=== PATIENT | female | born 1940 | race Caucasian/White ===

== ENCOUNTER 2024-08-07 19:07 | Inpatient (IN) | payer OTHER, SELFPAY ==
[2024-08-07 14:27] VITALS: BP 169/89
[2024-08-07 14:50] LABS: % Basophils 0.6 % (0-2); % Eosinophils 2.5 % (0-6); % Immature Granulocytes 0.2 % (0-0.5); % Lymphocytes 23.7 % (20.5-51.1); % Monocytes 7.4 % (1.7-9.3); % Neutrophils 65.6 % (42.2-75.2); Absolute Eosinophils 0.2 10^3/uL (0-0.7); Absolute Lymphocytes 1.5 10^3/uL (1.2-3.4); Absolute Monocytes 0.5 10^3/uL (0.1-0.6); Absolute Neutrophils 4.2 10^3/uL (1.4-6.5); Hematocrit 41.8 % (37.0-47.0); Mean Corp Hgb Conc. 33.5 g/dL (33.0-37.0); Mean Corpuscular Hgb 27.6 pg (27.0-31.0); Mean Corpuscular Volume 82.4 fL (81.0-99.0); Mean Platelet Volume 8.5 fL (7.4-10.4); Nucleated Red Blood Cells % 0 %; Platelet Count 242 10^3/uL (130-400); Red Blood Cell Count 5.07 10^6/uL (4.20-5.40); Red Cell Dist. Width 13.4 % (11.5-14.5); White Blood Cell Count 6.5 10^3/uL (4.8-10.8)
[2024-08-07 15:03] LABS: ALT (SGPT) 12 U/L (0-35); AST (SGOT) 20 U/L (14-36); Albumin 4.3 g/dl (3.5-5.0); Alkaline Phosphatase 72 U/L (38-126); Blood Urea Nitrogen 13 mg/dl (7-17); Calcium 9.7 mg/dl (8.4-10.2); Carbon Dioxide 25 mmol/L (22-30); Chloride 107 mmol/L (98-107); Glucose 107 mg/dl (70-99); Potassium 3.9 mmol/L (3.5-5.1); Sodium 141 mmol/L (135-145); Total Bilirubin 0.7 mg/dl (0.2-1.3); eGFR > 60.00
--- NOTE | 2024-08-07 17:11 | ED.CVA ---
History of Present Illness
General
Chief Complaint: CVA/TIA Symptoms
Time Seen by Provider: 08/07/24 16:26
Onset of Stroke Symptoms
Onset of symptoms known: Yes
Date of onset of symptoms: 08/06/24
Time of onset of symptoms: 19:00
Time pt last seen normal is known: Yes
Date last time pt seen normal: 08/06/24
History of Present Illness
History of Present Illness:
84-year-old female with history of MS presenting to the emergency department for visual changes. Patient reports yesterday she was watching TV and noticed some double vision, particularly when looking towards the left. She also reported that she
felt dizzy and vertiginous. Symptoms went away after about an hour, however returned this afternoon. The dizziness and the vertiginous symptoms have since resolved, however still having double vision with looking to the left. She is unsure if
this could be from her MS. Denies any associated weakness or numbness to her extremities. Denies recent fever, chest pain, difficulty breathing. She is not currently on any medications for her MS. She is not currently on any steroids. She
denies additional acute medical
Past History
Past History
ED Past Medical History: HTN, NIDDM and Other (MS, esophagitis, diverticulosis, IBS, glaucoma,)
ED Past Surgical History: Appendectomy, Orthopedic and Tonsilectomy
Social History
Tobacco: Non-smoker
Alcohol: None
Drug: None
Employment: Retired
Phy Exam
Physical Exam
Physical Exam:
General: Well-appearing, no clinical signs of dehydration, nontoxic and in no acute distress
HEENT: protecting airway, pupils equal and reactive, extraocular movements intact with horizontal nystagmus bilaterally. Reproduction of double vision with gaze towards the left
Neck: appears supple
CV: Normal heart rate, regular rhythm
Resp: No accessory muscle use, no increased work of breathing, lungs clear to auscultation bilaterally
Abd: Soft and non-distended, no tenderness to palpation
Extremities: No deformities, no swelling
Neuro: alert, difficulty with jcajgg-ii-[id number] on left, partial hemianopsia on the left
: deferred
Rectal: deferred
Psych: Normal affect
Skin: Intact
Scores
NIH Stroke Score
Level of Consciousness: 0 - Alert
LOC Questions: 0-Answers both correctly
LOC Commands: 0-Performs both correctly
Best Horizontal Gaze: 0-Normal
Visual Morin: 1=Partial hemianopia
Facial Palsy: 0=Normal, symmetrical
Motor - Right Arm: 0=No drift 10 seconds
Motor - Left Arm: 0=No drift 10 seconds
Motor - Right Le-No drift 5 seconds
Motor - Left Le-No drift 5 seconds
Limb Ataxia: 1-Present in one limb
Sensation: 0-Normal
Best Language: 0-No aphasia
Dysarthria: 0-Normal
Extinction and Inattention: 0-No abnormality
Total Score:: 2
Course
Orders/Labs/Results
Orders:
Orders
08/07/24 14:32
CT Head W/o Iv Contrast Urgent
Comment:
Reason For Exam: dizzy, blurry vision
08/07/24 14:43
Complete Blood Count/With Diff Urgent
Comprehensive Metabolic Panel Urgent
08/07/24 17:09
CT Head & Neck Angio W/wo IV Urgent
Comment:
Reason For Exam: double vision
MRI Brain [MR Brain W/o & With Contrast] Urgent
Comment:
Reason For Exam: double vision
Recent pill cam endoscopy?: No
Abnormal Lab Results
08/07/24
14:43
Glucose 107 H mg/dl
(70-99)
08/07/24 14:43
08/07/24 14:43
Vital Signs
Initial and Last Documented VS:
Initial Vital Signs
Temp Pulse Resp BP Pulse Ox
98.2 F 78 18 169/89 96
08/07/24 14:27 08/07/24 14:27 08/07/24 14:27 08/07/24 14:27 08/07/24 14:27
Last Documented Vital Signs
Temp Pulse Resp BP Pulse Ox
98.2 F 78 18 169/89 96
08/07/24 14:27 08/07/24 14:27 08/07/24 14:27 08/07/24 14:27 08/07/24 14:27
MDM/Problems Addressed
MDM/Problems Addressed:
84-year-old female with history of MS presenting to the emergency department for double vision. Vital signs on arrival are significant for mild hypertension.
On exam patient is resting comfortably, no acute distress or discomfort. Patient does have partial hemianopsia and difficulty with syjfuh-hx-oueo testing on the left, otherwise no focal deficits. Differential considerations include CVA versus MS
flare. Patient does have some mild tenderness to the left temporal region, lower suspicion for temporal arteritis. Patient had CT imaging prior to my assessment, no acute intracranial abnormality. Patient is out of the window for any tPA. Did
discuss with neurology, recommending CT angio and MRI with plan for admission, and to start on low-dose aspirin.
*Critical Care Note
Total Time (30-74mins, 75-104mins- exclusive of procedures): Not Applicable
ED Attending Note
-
Portions of this chart may have been created with voice recognition software.� Occasional wrong word or��sound alike� substitutions may have occurred due to the inherent limitations of voice recognition software.
Discharge Plan
Departure
Prescriptions:
No Action
cyclobenzaprine 10 MG tablet
10 - 20 mg PO DAILYPRN PRN (Reason: muscle spasms)
diphenoxylate-atropine 1 TABLET tablet
1 tab PO BIDPRN PRN (Reason: diarrhea)
calcium carbonate [Oyster Shell Calcium 500] 500 MG tablet
500 mg PO DAILY
ascorbic acid (vitamin C) [Vitamin C] 500 MG tablet
500 mg PO DAILY
B-complex with vitamin C 1 CAPLET tablet
1 cap PO DAILY
cinnamon bark [Cinnamon] 500 MG capsule
500 mg PO DAILY
cholecalciferol (vitamin D3) 1,000 UNITS tablet
1,000 units PO DAILY
olopatadine [Pataday Once Daily Relief] 2.5 ML drops
1 drp BOTH EYES DAILYPRN PRN (Reason: flare ups)
melatonin 5 MG tablet
2.5 mg PO HSPRN PRN (Reason: sleep)
acetaminophen 325 MG tablet
650 mg PO Q4HPRN PRN (Reason: mild pain/BALTAZAR/temp> 100.4F) 0RF
ipratropium-albuterol 3 ML solution for nebulization
3 ml inhalation R Q4HPRN PRN (Reason: shortness or breath/wheezing) 0RF
levofloxacin 500 mg tablet
500 mg PO DAILY 3 Days Qty: 3 0RF
oxycodone-acetaminophen [Percocet] 5-325 mg tablet
1 tab PO Q4HPRN PRN (Reason: pain) Qty: 7 0RF
Referrals:
NONE,* [Family Provider] -
Interventions
Interventions:
*Risk Screen - Suicide Last Done: 08/07/24 14:27
*General Assessment Last Done: 08/07/24 14:27
*ED COVID-19 Vaccine History Last Done: 08/07/24 14:27
Discharge Date and Time
Print Language: ROMANSH
[2024-08-07] MEDS: LOW STRENGTH ASPIRIN 81 MG PO (17:29)
[2024-08-07 17:39] VITALS: BMI 22.7
--- NOTE | 2024-08-07 17:48 | HPS.HSE ---
Family Physician
-
Family Physician: Yrn Jackson
Chief Complaint
-
Double vision when looking straight, posterior headache
History of Present Illness
84-year-old female complaining of double vision when she looks straight yesterday 08/06/2024 while watching television. This lasted approximately 1 to 2 hours along with a posterior headache. She also reports tenderness to her left sikhism area.
She reports she has chronic diplopia when looking to the left which is caused a left neck torticollis. She reports the symptoms went away last night but then reoccurred this morning at 10 AM and persisted for over 2 hours. She still has a
posterior headache which is worse with sitting up. When sitting her blood pressure became extremely elevated 180/150. Then when standing up went to 160/100 associated with a stronger pressure in the posterior back of her head. She walked with a
walker in the room and felt a sense of leaning to the left however I did not appreciate this on my exam. She denies any associated weakness or numbness to her extremities, injury, fall, headache fever, chills, chest pain, palpitations, cough,
shortness of breath, abdominal pain, nausea, vomiting, diarrhea, urinary symptoms. She has past medical history of multiple sclerosis, History of meningioma right posterior foramen magnum,chronic left-sided diplopia, chronic left-sided neck
torticollis HTN, DM2, glaucoma, esophagitis, diverticulosis, IBS with chronic diarrhea,COPD/bronchiectasis,PVCs, Ankylosing spondylitis, Osteoporosis, Osteoarthritis
Full-thickness rotator cuff left shoulder status post left shoulder replacement,Zenker's diverticulum 2014, History shingles June 2014
Adrenal insufficiency 2014, Orthostatic hypotension
Medical History
Past Medical History
Past Medical History: Reports Other
Additional Past Medical History:
multiple sclerosis since age 18
History of meningioma right posterior foramen magnum
chronic left-sided diplopia
chronic left-sided neck torticollis due to chronic left-sided diplopia
HTN-stopped Norvasc years ago due to controlled pressure
DM2-stop meds years ago due to low A1c
glaucoma
esophagitis
diverticulosis
IBS with chronic diarrhea.
COPD/bronchiectasis
PVCs
Ankylosing spondylitis
Osteoporosis
Osteoarthritis
Full-thickness rotator cuff left shoulder status post left shoulder replacement
Zenker's diverticulum 2014
History shingles June 2014
Adrenal insufficiency Dx 2014
Orthostatic hypotension
Past Surgical History: Reports Other
Additional Past Surgical History:
Appendectomy
Tonsillectomy
-Multiple cervical epidurals 06/2012, 08/2012, additional epidurals April 2014, May, June, August, October 2014
Lumbar epidural�August 2012, December 2012 L3 epidural space, January/2013 third epidural lumbar, fourth epidural 2013
Right knee replacement June 2013 [facility]
Temporal artery biopsy
Left hip replacement 10/13/2020
Bilateral trigger finger release 08/27/2015
Social History
Tobacco: Former Smoker (20-year 1 pack a day quit 40 years ago)
Alcohol: Occasional
Drug: None
Personal: Single
Living: Alone (Two-story home but has stair glide)
Employment: Retired
Family History
Family History: Not pertinent
Allergies / Home Medications
Allergies reflects when Allergies were last updated in [facility].
Home Medications with original date entered in [facility]
Allergy/Medication List:
Allergies
Allergy/AdvReac Type Severity Reaction Status Date / Time
acetaminophen [From Ultracet] Allergy Unknown Verified 08/07/24 14:31
amiloride Allergy Unknown Verified 08/07/24 14:31
amlodipine besylate Allergy Unknown Verified 08/07/24 14:31
[From Norvasc]
azithromycin [From Zithromax] Allergy Unknown Verified 08/07/24 14:31
bacitracin [From Cortisporin] Allergy EYE Verified 08/07/24 14:31
DROPS-UNKNOWN
cefaclor [From Ceclor] Allergy Unknown Verified 08/07/24 14:31
cefixime [From Suprax] Allergy Unknown Verified 08/07/24 14:31
cefuroxime axetil Allergy Unknown Verified 08/07/24 14:31
[From Ceftin]
ciprofloxacin [From Cipro] Allergy Unknown Verified 08/07/24 14:31
ciprofloxacin HCl Allergy Unknown Verified 08/07/24 14:31
[From Cipro]
clarithromycin [From Biaxin] Allergy Unknown Verified 08/07/24 14:31
cyproheptadine HCl Allergy Unknown Verified 08/07/24 14:31
[From Periactin]
diclofenac [From Arthrotec] Allergy Unknown Verified 08/07/24 14:31
diltiazem HCl [From Cardizem] Allergy Unknown Verified 08/07/24 14:31
etidronate disodium Allergy Unknown Verified 08/07/24 14:31
[From Didronel]
fluoxetine HCl [From Prozac] Allergy Unknown Verified 08/07/24 14:31
flurbiprofen [From Ansaid] Allergy Unknown Verified 08/07/24 14:31
hydrocortisone Allergy EYE Verified 08/07/24 14:31
[From Cortisporin] DROPS-UNKNOWN
hydromorphone HCl Allergy Unknown Verified 08/07/24 14:31
[From Dilaudid]
lansoprazole [From Prevacid] Allergy Unknown Verified 08/07/24 14:31
losartan potassium Allergy Unknown Verified 08/07/24 14:31
[From Cozaar]
metoprolol succinate Allergy Unknown Verified 08/07/24 14:31
[From Toprol XL]
misoprostol [From Arthrotec] Allergy Unknown Verified 08/07/24 14:31
neomycin [From Cortisporin] Allergy EYE Verified 08/07/24 14:31
DROPS-UNKNOWN
polymyxin B Allergy EYE Verified 08/07/24 14:31
[From Cortisporin] DROPS-UNKNOWN
pravastatin Allergy Unknown Verified 08/07/24 14:31
quinapril HCl [From Accupril] Allergy Unknown Verified 08/07/24 14:31
sertraline HCl [From Zoloft] Allergy Unknown Verified 08/07/24 14:31
shellfish derived Allergy Unknown Verified 08/07/24 14:31
simvastatin Allergy Unknown Verified 08/07/24 14:31
Sulfa (Sulfonamide Allergy ALL SULFA Verified 08/07/24 14:31
Antibiotics) DRUGS
topiramate [From Topamax] Allergy Unknown Verified 08/07/24 14:31
tramadol Allergy Unknown Verified 08/07/24 14:31
tramadol HCl [From Ultracet] Allergy Unknown Verified 08/07/24 14:31
valdecoxib [From Bextra] Allergy Unknown Verified 08/07/24 14:31
verapamil [From Covera-HS] Allergy Unknown Verified 08/07/24 14:31
Home Medications
cholecalciferol (vitamin D3) 25 mcg (1,000 unit) tablet 1,000 units PO BID Supplement 09/20/21
olopatadine 0.2 % eye drops (Pataday Once Daily Relief) 1 drp BOTH EYES DAILYPRN PRN flare ups 09/20/21
ascorbic acid (vitamin C) 250 mg chewable tablet (Vitamin C) 250 mg PO DAILY 08/07/24
calcium 500 mg (as carbonate)-vit D3 10 mcg (400 unit) chewable tablet (Calcium 500 + D) 1 tab PO DAILY 08/07/24
coenzyme Q10 100 mg capsule (CoQ-10) 100 mg PO BID 08/07/24
diphenoxylate-atropine 2.5 mg-0.025 mg tablet 1 tab PO QID 08/07/24
elderberry fruit 350 mg capsule 350 mg PO DAILY 08/07/24
magnesium oxide 400 mg PO DAILY 08/07/24
omega-3 fatty acids-fish oil 684 mg-1,200 mg capsule,delayed release 1 cap PO DAILY 08/07/24
oxycodone-acetaminophen 5 mg-325 mg tablet (Percocet) 1 tab PO Q4HPRN PRN severe pain 08/07/24
vitamin B complex 1 tab PO DAILY 08/07/24
zinc sulfate 50 mg zinc (220 mg) tablet 50 mg PO DAILY 08/07/24
Review of Systems
-
History Source: Patient and Family (Daughter at bedside)
A 12 point ROS was completed and negative except as noted: Yes
Constitutional: Denies Fever, Fatigue or Chills
EENT: Reports Other (Chronic diplopia looking to the left, new diplopia looking forward lasted 1 to 2 hours yesterday and today, torticollis left-sided neck, tenderness left temporal area); Denies Sore Throat
Respiratory: Denies Cough or Trouble Breathing
Cardiac: Denies Chest Pain, Diaphoresis, Palpitations or Syncope
Abdomen/GI: Denies Abdominal Pain, Nausea, Vomiting, Diarrhea or Constipated
: Denies Dysuria, Frequency, Flank Pain, Incontinence, Difficulty Voiding, Urgency or Dark Urine
Musculoskeletal: Denies Joint Pain or Edema
Skin: Denies Itching or Rash
Neurological: Reports Headache (Posterior headache) and Other (Feels she is leaning to the left when walking however I did not observe this on my exam); Denies Dizzy, Weakness or Numbness
Endocrine: Reports No Symptoms
Hematologic/Lymphatic: Reports No Symptoms
Psych: Reports Calm
Physical Exam
Vital Signs
Vital Signs
Temp Pulse Resp BP Pulse Ox
98.2 F 78 18 169/89 97
08/07/24 14:27 08/07/24 14:27 08/07/24 14:27 08/07/24 14:27 08/07/24 17:45
Physical Exam
General: Comfortable, Conversant and Pain (Posterior neck); No Fever
HEENT: NormoCephalic, Anicteric, Moist mucous membranes, PERRLA, Grawn Conjunctivae, No Ptosis and Other (Reported diplopia when looking to left, brief diplopia when sitting up in bed with blood pressure 180/150, tenderness to left side of neck
secondary to torticollis related to chronic left-sided diplopia)
Respiratory: Clear; No Wheezes, Rales or Rhonchi
Cardiac: S1/S2 and Regular Rhythm; No Murmur, Rub or Gallop
Breast: Deferred by me
GI: Soft, Non Tender, Non Distended, Normal Bowel Sounds and No Hepatosplenomegaly
Rectal: Deferred by Provider
Genito-urinary: Deferred by me
Musculoskeletal: No Clubbing, No Cyanosis and No Edema
Skin: Warm and Dry; No Rash
Neuro: AO x 3, Nonfocal/grossly intact, Cranial Nerves Intact, No Sensory Deficits and Other (Was able to walk with a walker in room and turned around to left and right she reports feeling since leaning to left however I do not appreciate that on
exam); No Slurred Speech, Facial Droop or Tremors
Psych: Anxious
Laboratory Results
-
08/07/24 14:43
08/07/24 14:43
Laboratory Results
Total Bilirubin 0.7 mg/dl (0.2-1.3) 08/07/24 14:43
AST 20 U/L (14-36) 08/07/24 14:43
ALT 12 U/L (0-35) 08/07/24 14:43
Alkaline Phosphatase 72 U/L (38-126) 08/07/24 14:43
Data Reviewed
-
Lab Data: Labs Reviewed by me
Impression/Plan
-
Impression/plan:
Observation telemetry
#Acute diplopia with left-sided gait leaning concern for MS flare versus CVA
#Chronic left-sided diplopia causing left-sided neck torticollis-advised patient to follow-up with PT outpatient for torticollis physical therapy
-Check CT angio
-MRI brain
-Consult neurology
-Check lipid profile, A1c
Patient given aspirin
-Consult PT/OT/case management
CT head: No acute intracranial abnormalities. Findings again seen with diffuse cortical atrophy with nonspecific white matter changes
#HTN Urgency likely causing posterior headache
Lying BP 169/89 HR 80
Sitting 180/150 HR 80
Standing 160/100 HR 88
-IV hydralazine 10 mg now
-IV hydralazine 10 mg every 6 hours as needed SBP> 165
#History of meningioma right posterior foramen magnum
-Patient reports had MRI years ago at [place] on [address] had slight increase of the meningioma
Patient follows with [facility] neurosurgery and Keena Damon associated with [facility]
-Obtain MRI records from [place]
#Multiple sclerosis since age 18
#Chronic dysphagia�states he eats regular food just cuts into small pieces tolerates thin liquids
PMR
-Last use of prednisone was several months ago
Fibromyalgia on chronic oral opiates
DDD/scoliosis/herniated disks/multiple cervical and lumbar epidurals
#DM2
-Patient reports stopped meds years ago after 90 pound weight loss
Will check HgbA1c Accu-Cheks with SSI
#GlaucomA
-Patient received no current treatments
#Esophagitis
-No current meds
#Diverticulosis hx-stable
#IBS with history of chronic diarrhea
-Continue Lomotil 1 tab 4 times daily
Other PMH:
COPD/bronchiectasis
PVCs
Ankylosing spondylitis
Osteoporosis
Osteoarthritis
Full-thickness rotator cuff left shoulder status post left shoulder replacement
Zenker's diverticulum 2014
History shingles June 2014
Adrenal insufficiency Dx 2014
Orthostatic hypotension
DVT prophylaxis
SCDs
DNR per patient with daughter at bedside
--- NOTE | 2024-08-07 19:17 | W.PN.UPDATE ---
Update Note
Progress Note Update
This is an addendum to the H&P written by Daxa Bhatia on 08/07/2024.� Patient seen and examined independently with ADMITTED ATTORNEYS.
84-year-old female past medical history of multiple sclerosis, hypertension, diabetes, COPD, GERD, esophagitis, fibromyalgia, IBS, degenerative disc disease, presenting for double vision when looking towards the left, dizziness and vertigo
associated with headache.� Symptoms improved and returned.
CT head shows no acute abnormality.
Presentation concerning multiple sclerosis flare versus rule out CVA.
NIH of 2.� Neurology recommends CTA head and neck and MRI brain.� Hold off on steroids.
[2024-08-07 19:26] VITALS: BP 179/99
[2024-08-07] MEDS: TYLENOL 650 MG PO ×2 (19:27→23:03)
[2024-08-07] MEDS: APRESOLINE 10 MG IV ×2 (19:29→22:15)
[2024-08-07 19:44] LABS: Erythrocyte Sed Rate 2 mm/hour (0-20)
[2024-08-07 19:47] LABS: C-Reactive Protein < 5.00 mg/L (0.0-10.00)
[2024-08-07 21:10] VITALS: BP 169/87
[2024-08-07 21:50] VITALS: BP 170/90; BMI 21.7
[2024-08-07] MEDS: LOMOTIL 1 TABLET PO (22:15)
--- NOTE | 2024-08-07 23:11 | PTCARENOTE ---
Patient stated she felt like she was having uncontrolled movements in her arms around 2200. Jerking hand movements noted, but quickly resolved. Per patient she had a similar episode after she had her imaging done. Nurse practitioner made aware, no
new orders.
[2024-08-07] MEDS: PERCOCET 5/325 1 TABLET PO (23:46)
[2024-08-07 23:50] VITALS: BP 126/80
[2024-08-08] VITALS (8 sets, daily range): BP systolic 117–150; BP diastolic 64–79; PULSE 73–77; O2SAT 99; BMI 21.7
[2024-08-08] MEDS: TYLENOL 650 MG PO (03:35)
--- NOTE | 2024-08-08 07:19 | CON.NEURO ---
Consultation
Order
Date of Consultation: 08/08/24
Requesting Provider: Daxa Bhatia CRNP
Reason for Consult: Diplopia, posterior headache
Neurology Consultation Note.
HPI: This is an 84-year-old RH woman who presented to [facility] on 08/07/2024 with transient language dysfunction.
According to the patient two days prior to admission, while watching television, the patient experienced an inability to comprehend letters on the screen. She was unable to read despite being able to see the letters. It is unknown if the patient
could write during that time . Upon standing, Ms. Baer noted significant balance issues and exacerbation of pre-existing left gaze diplopia. Her visual symptoms gradually improved improved. She contacted her PCP who was unavailable at that time.
The following day, a similar episode occurred, prompting the patient to seek hospital care. Ms. Baer reports no difficulties with expressive language (and was able to communicate on the phone with no changes). She denied having headaches,
fever. No history of seizures.
ER VS: 169/89-179/99, 78, afebrile.
EKG: Pending
PDMP:Oxycodone-Acetaminophen 5-325 20 tablets filled in on 07/26/2024, 06/06/2024
Labs: Glucose�107, normal CBC, LFTs
Brain MRI with and without rafa (08/07/2024)�right posterior fossa meningioma measuring up to 1.2 cm, with slight mass effect on the right posterolateral aspect of the medulla, slightly progressed, stable moderate to severe hyperintensity within the
periventricular and deep subcortical white matter and fanny, no evidence of acute infarcts.
CTA head/neck�no evidence of hemodynamically significant stenosis
PMH:RRMS, HTN, DLP, GERD, COPD, OA, RAFA, IBS, fibromyalgia, Ankylosing spondylitis, osteoporosis, vitamin D deficiency, chronic pain syndrome
PSH: Lumbar laminectomies, appendectomy, bilateral median decompression, left shoulder arthroplasty Zenker's diverticulum repair
SH: Lives alone, ambulates with a walker, does not drive, non-smoker, retired insurance company director funeral
FH: Not contributory
All: Sulfas, Acetaminophen, amiloride, amlodipine, azithromycin, cefaclor, cefepime, cefuroxime, Cipro, erythromycin, diclofenac, diltiazem, Dilaudid, lansoprazole, hydrocortisone, losartan, metoprolol, misoprostol, neomycin, pravastatin,
sertraline, iodine, simvastatin, sulfas, Topamax, valdecoxib, tramadol, verapamil polymyxin
ROS: Constitutional: Negative. Negative for chills, fever and unexpected weight change.
HENT: Positive for chronic diplopia
Eyes: Negative. Negative for photophobia, pain and visual disturbance.
Respiratory: Negative for cough, choking and shortness of breath.
Cardiovascular: Negative for chest pain, palpitations and leg swelling.
Gastrointestinal: Positive for chronic diarrhea, bowel incontinence
Endocrine: Negative. Negative for cold intolerance.
Genitourinary: Negative for dysuria, flank pain and urgency.
Musculoskeletal: Positive for back stiffness
Skin: Negative for rash.
Allergic/Immunologic: Negative. Negative for immunocompromised state.
Neurological: Positive for chronic imbalance, chronic right foot numbness, regarding the legs
General: Well developed. In no acute distress.
Cardio: Regular rate and rhythm without murmur. Extremities are without cyanosis or edema.
Neuro:
Mental Status: Alert, oriented to person, place, and date. Normal attention and recall. Good fund of knowledge. Follows complex requests across the midline. Comprehension, naming, and repetition intact. Immediate and delayed recall 3/3.
Cranial Nerves: Pupils are equally round, surgical. EOMs full. Visual ayers full to confrontation. No ptosis. No nystagmus. V1-V3 intact to light touch and pinprick bilaterally, symmetric. Face symmetric. Normal hearing AU. The palate
elevated well. SCMs and traps 5/5. Tongue midline. No dysarthria.
Motor: Normal bulk and tone. No pronator or arm drift. Strength 5/5 throughout. No clonus.
Reflexes: 2+ throughout the upper extremities and knees. Plantar responses flexor bilaterally.
Sensory: Reduced vibration at the right toe and ankle
Coordination: No dysmetria or tremor.
Gait: deferred
Assessment and Plan:
I. 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 Differential diagnosis includes vascular versus epileptic.
II. Right posterior fossa meningioma with mass effect on the right posterolateral aspect of the medulla
III. RRMS
IV. HTN
-Continue Telemetry monitoring
-Fall precautions
-Please obtain routine EEG
-Start Plavix 75 mg once a day. Patient is allergic to sulfas
-Neurosurgery consult (can be done as outpatient)
-Outpatient neuropsychological evaluation
-PT
-DVT prophylaxis.
I personally reviewed all radiology and labs along with past medical records pertinent to current medical problems. Total time spent in patient care is 60 minutes.
Thank you for allowing us to participate in the care of this patient. We will continue to follow. Please do not hesitate to contact us with any questions or concerns.
Subjective/Objective
Subjective Data
Date of Service: August 08, 2024
Objective Data
Vital Signs
Temp Pulse Resp BP Pulse Ox
36.7 C 85 18 117/70 99
08/08/24 03:13 08/08/24 03:13 08/08/24 03:13 08/08/24 03:13 08/08/24 03:13
Sodium 141 mmol/L (135-145) 08/07/24 14:43
Potassium 3.9 mmol/L (3.5-5.1) 08/07/24 14:43
BUN 13 mg/dl (7-17) 08/07/24 14:43
Glucose 107 mg/dl (70-99) H 08/07/24 14:43
Calcium 9.7 mg/dl (8.4-10.2) 08/07/24 14:43
Patient Allergies
acetaminophen [From Ultracet] Allergy (Verified 08/07/24 14:31)
Unknown
amiloride Allergy (Verified 08/07/24 14:31)
Unknown
amlodipine besylate [From Norvasc] Allergy (Verified 08/07/24 14:31)
Unknown
azithromycin [From Zithromax] Allergy (Verified 08/07/24 14:31)
Unknown
bacitracin [From Cortisporin] Allergy (Verified 08/07/24 14:31)
EYE DROPS-UNKNOWN
cefaclor [From Ceclor] Allergy (Verified 08/07/24 14:31)
Unknown
cefixime [From Suprax] Allergy (Verified 08/07/24 14:31)
Unknown
cefuroxime axetil [From Ceftin] Allergy (Verified 08/07/24 14:31)
Unknown
ciprofloxacin [From Cipro] Allergy (Verified 08/07/24 14:31)
Unknown
ciprofloxacin HCl [From Cipro] Allergy (Verified 08/07/24 14:31)
Unknown
clarithromycin [From Biaxin] Allergy (Verified 08/07/24 14:31)
Unknown
cyproheptadine HCl [From Periactin] Allergy (Verified 08/07/24 14:31)
Unknown
diclofenac [From Arthrotec] Allergy (Verified 08/07/24 14:31)
Unknown
diltiazem HCl [From Cardizem] Allergy (Verified 08/07/24 14:31)
Unknown
etidronate disodium [From Didronel] Allergy (Verified 08/07/24 14:31)
Unknown
fluoxetine HCl [From Prozac] Allergy (Verified 08/07/24 14:31)
Unknown
flurbiprofen [From Ansaid] Allergy (Verified 08/07/24 14:31)
Unknown
hydrocortisone [From Cortisporin] Allergy (Verified 08/07/24 14:31)
EYE DROPS-UNKNOWN
hydromorphone HCl [From Dilaudid] Allergy (Verified 08/07/24 14:31)
Unknown
lansoprazole [From Prevacid] Allergy (Verified 08/07/24 14:31)
Unknown
losartan potassium [From Cozaar] Allergy (Verified 08/07/24 14:31)
Unknown
metoprolol succinate [From Toprol XL] Allergy (Verified 08/07/24 14:31)
Unknown
misoprostol [From Arthrotec] Allergy (Verified 08/07/24 14:31)
Unknown
neomycin [From Cortisporin] Allergy (Verified 08/07/24 14:31)
EYE DROPS-UNKNOWN
polymyxin B [From Cortisporin] Allergy (Verified 08/07/24 14:31)
EYE DROPS-UNKNOWN
pravastatin Allergy (Verified 08/07/24 14:31)
Unknown
quinapril HCl [From Accupril] Allergy (Verified 08/07/24 14:31)
Unknown
sertraline HCl [From Zoloft] Allergy (Verified 08/07/24 14:31)
Unknown
shellfish derived Allergy (Verified 08/07/24 14:31)
Unknown
simvastatin Allergy (Verified 08/07/24 14:31)
Unknown
Sulfa (Sulfonamide Antibiotics) Allergy (Verified 08/07/24 14:31)
ALL SULFA DRUGS
topiramate [From Topamax] Allergy (Verified 08/07/24 14:31)
Unknown
tramadol Allergy (Verified 08/07/24 14:31)
Unknown
tramadol HCl [From Ultracet] Allergy (Verified 08/07/24 14:31)
Unknown
valdecoxib [From Bextra] Allergy (Verified 08/07/24 14:31)
Unknown
verapamil [From Covera-HS] Allergy (Verified 08/07/24 14:31)
Unknown
Medications
-
Active Medications
Generic Name Dose Route Start Last Admin
Trade Name Freq PRN Reason Stop Dose Admin
Acetaminophen 650 mg 08/07/24 21:18 08/08/24 03:35
Acetaminophen 325 Mg Tablet PO 09/04/24 21:17 650 mg
Q4HPRN PRN Administration
mild pain/BALTAZAR/temp> 100.4F
Ascorbic Acid 250 mg 08/08/24 08:00
Ascorbic Acid 250 Mg Tablet PO 09/05/24 07:59
DAILY AARON
Calcium/Vitamin D 500 mg 08/08/24 08:00
Calcium Carbonate 500 Mg/Vitamin D 5 Mcg (200 Units) Tablet PO 09/05/24 07:59
DAILY AARON
Dextrose 12.5 grams 08/07/24 21:18
Dextrose 50% (0.5 Grams/Ml) 50 Ml Syringe IV 09/04/24 21:17
[id number] PRN
hypoglycemia
Protocol
Diphenoxylate HCl/Atropine 1 tablet 08/07/24 22:00 08/07/24 22:15
Diphenoxylate/Atropine Tablet PO 09/04/24 21:59 1 tablet
QID AARON Administration
Glucagon 1 mg 08/07/24 21:18
Glucagon 1 Mg Vial IM 09/04/24 21:17
PRN PRN
hypoglycemia
Protocol
Hydralazine HCl 10 mg 08/07/24 18:27 08/07/24 22:15
Hydralazine 20 Mg/Ml Vial IV 09/04/24 18:26 10 mg
Q6HPRN PRN Administration
sbp>165 lynne>110
Insulin Aspart 0 units 08/08/24 07:30
Insulin Aspart Low Resistance 300 Units/3 Ml Pen.Injctr SC 09/05/24 07:29
AC AARON
Protocol
Magnesium 84 mg 08/08/24 08:00
Magnesium Lactate 84 Mg Tablet PO 09/05/24 07:59
DAILY AARON
Olopatadine [Pataday 0 drop 08/07/24 21:18
Once Daily Relief] BOTH EYES 09/04/24 21:17
One Drop Both Eyes DAILYPRN PRN
Dailyprn flare ups
Oxycodone/Acetaminophen 1 tablet 08/07/24 21:18 08/07/24 23:46
Oxycodone 5 Mg/Apap 325 Mg (Percocet) PO 08/21/24 21:17 1 tablet
Q4HPRN PRN Administration
severe pain
Sodium Chloride 0 flush 08/07/24 20:00
Sodium Chloride 0.9% (Flush) Syringe IV 09/04/24 19:59
PER PROTOCOL AARON
Vitamin B Complex/Vitamin C 1 caplet 08/08/24 08:00
Vitamin B Complex With Vitamin C Caplet PO 09/05/24 07:59
DAILY AARON
Zinc 50 mg 08/08/24 08:00
Zinc 50 Mg (Zinc Sulfate 220 Mg) Capsule PO 09/05/24 07:59
DAILY AARON
Home Medications
�Medication �Instructions �Recorded
cholecalciferol (vitamin D3) 25 1,000 units PO BID Supplement 09/20/21
mcg (1,000 unit) tablet
olopatadine 0.2 % eye drops 1 drp BOTH EYES DAILYPRN PRN flare 09/20/21
(Pataday Once Daily Relief) ups
ascorbic acid (vitamin C) 250 mg 250 mg PO DAILY Supplement 08/07/24
chewable tablet (Vitamin C)
calcium 500 mg (as carbonate)-vit 1 tab PO DAILY Supplement 08/07/24
D3 10 mcg (400 unit) chewable
tablet (Calcium 500 + D)
coenzyme Q10 100 mg capsule 100 mg PO BID High Cholesterol 08/07/24
(CoQ-10)
diphenoxylate-atropine 2.5 1 tab PO QID 08/07/24
mg-0.025 mg tablet
elderberry fruit 350 mg capsule 350 mg PO DAILY Supplement 08/07/24
magnesium oxide 400 mg PO DAILY 08/07/24
omega-3 fatty acids-fish oil 684 1 cap PO DAILY 08/07/24
mg-1,200 mg capsule,delayed release
oxycodone-acetaminophen 5 mg-325 1 tab PO Q4HPRN PRN severe pain 08/07/24
mg tablet (Percocet)
vitamin B complex 1 tab PO DAILY 08/07/24
zinc sulfate 50 mg zinc (220 mg) 50 mg PO DAILY 08/07/24
tablet
[2024-08-08 07:55] LABS: % Basophils 0.4 % (0-2); % Eosinophils 2.4 % (0-6); % Immature Granulocytes 0.1 % (0-0.5); % Lymphocytes 17.5 % (20.5-51.1); % Monocytes 8.4 % (1.7-9.3); % Neutrophils 71.2 % (42.2-75.2); Absolute Eosinophils 0.2 10^3/uL (0-0.7); Absolute Lymphocytes 1.2 10^3/uL (1.2-3.4); Absolute Monocytes 0.6 10^3/uL (0.1-0.6); Absolute Neutrophils 4.8 10^3/uL (1.4-6.5); Hematocrit 40.4 % (37.0-47.0); Hemoglobin 13.8 g/dL (12.0-16.0); Mean Corp Hgb Conc. 34.2 g/dL (33.0-37.0); Mean Corpuscular Hgb 27.9 pg (27.0-31.0); Mean Corpuscular Volume 81.6 fL (81.0-99.0); Nucleated Red Blood Cells % 0 %; Platelet Count 253 10^3/uL (130-400); Red Blood Cell Count 4.95 10^6/uL (4.20-5.40); Red Cell Dist. Width 13.6 % (11.5-14.5); White Blood Cell Count 6.7 10^3/uL (4.8-10.8)
[2024-08-08 08:12] LABS: Glucose - Point of Care 119 mg/dl (70-99)
[2024-08-08] MEDS: NOVOLOG FLEXPEN-LOW RESISTANCE SC ×2 (08:17→11:12)
[2024-08-08] MEDS: OSCAL 500 + D 500 MG PO (08:20)
[2024-08-08] MEDS: MAG-TAB SR 84 MG PO (08:20)
[2024-08-08] MEDS: B COMPLEX w/VITAMIN C 1 CAPLET PO (08:25)
[2024-08-08] MEDS: LOMOTIL 1 TABLET PO ×4 (08:25→20:27)
[2024-08-08] MEDS: ZINC 50 MG PO (08:25)
--- NOTE | 2024-08-08 09:05 | PTOTSP ---
pt currently requires supervision to complete simple ADLs, functional transfers, ambulation. pt reports vision is near baseline, though continues with diplopia of left visual gaze. no acute OT needs identified at this time, will sign off.
[2024-08-08 09:09] LABS: ALT (SGPT) 11 U/L (0-35); AST (SGOT) 21 U/L (14-36); Albumin 3.8 g/dl (3.5-5.0); Alkaline Phosphatase 66 U/L (38-126); Blood Urea Nitrogen 12 mg/dl (7-17); Calcium 9.6 mg/dl (8.4-10.2); Carbon Dioxide 26 mmol/L (22-30); Chloride 108 mmol/L (98-107); Estimated Creatinine Clearance 52 ml/min; Glucose 116 mg/dl (70-99); HDL Cholesterol 37 mg/dl; LDL Cholesterol, Calculated 110 mg/dl; Potassium 4.1 mmol/L (3.5-5.1); Sodium 141 mmol/L (135-145); Total Bilirubin 0.9 mg/dl (0.2-1.3); Total Cholesterol 170 mg/dl (50-199); Total Protein 6.2 g/dl (6.3-8.2); Triglyceride 115 mg/dl (10-149); Very Low Density Lipoprotein 23 mg/dl (0-30); eGFR > 60.00
[2024-08-08 10:19] LABS: Glycohemoglobin (HgbA1c) 5.6 % (4.0-5.6)
[2024-08-08] MEDS: VITAMIN C 250 MG PO (11:04)
[2024-08-08] MEDS: PLAVIX 75 MG PO (11:06)
--- NOTE | 2024-08-08 11:07 | EEGC.RPT ---
Continuous EEG Report
Report
TECHNICAL REMARKS: This is a technically satisfactory eighteen channel record employing 21 disc electrodes applied according to a measured international 10-20 electrode placement system. There were no significant technical difficulties. The study
was done on a [employer] System.
CLINICAL HISTORY: This is an 84-year-old woman with recurrent alexia. This study was requested to look for epileptiform abnormalities.
MEDICATION: no AED
STUDY DURATION: 27 min, 58 secs
REPORT: At the onset of the EEG, the patient is awake. The background activity consists of 9.5-10 Hz, persistent, posteriorly dominant, moderate amplitude, symmetric and rhythmic activity that is reactive to eye-opening. Anteriorly, it consists of
a mixture of low voltage indeterminate activity and 20-25 Hz, persistent, low amplitude, symmetric and rhythmic activity. Stepwise intermittent photic stimulation (1-31 Hz) does not induce any abnormalities. Hyperventilation was not performed.
Drowsiness is characterized by low amplitude mixed frequency activity, decreased eye blinking, and muscle artifact. N2 sleep was reached
IMPRESSION: This is a normal awake and asleep EEG. There is no evidence of focal slowing or epileptiform activity. A normal EEG does not rule out epilepsy. If the clinical picture warrants, a sleep-deprived awake and sleep record may be helpful.
[2024-08-08 11:10] LABS: Glucose - Point of Care 109 mg/dl (70-99)
--- NOTE | 2024-08-08 11:20 | W.PN.HOSP.TC ---
Addendum entered and electronically signed by Susan Fung MD 08/08/24 14:06:
I saw and evaluated the patient independently. I reviewed the resident�s note and agree with findings and plan as documented by Dr. Vides.
GENERAL: well developed, well nourished, female in no apparent distress
HEENT: NC/AT
HEART: regular rate and rhythm, +S1, +S2--periods of rapid afib on tele (HR increased to 142)
LUNGS : clear to auscultation bilaterally
ABDOM: soft, nontender, nondistended, + bowel sounds
EXT: no cyanosis, clubbing, or edema
NEUROLOGIC: grossly intact
Acute diplopia (Chronic left-sided diplopia along with left-sided neck torticollis) with left-sided gait--strongly suspected TIA--apprec neuro--CT/MRI all negative for acute findings--EEG negative--cont plavix--for d/c tomorrow--PT/OT
Hypertensive urgency likely causing headaches--IV hydralazine as needed--Continue monitoring blood pressure
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
Multiple sclerosis--Symptoms not thought to be due to recent MS flare--Continue prior management
Type 2 diabetes--HbA1c pending--Insulin sliding scale as needed
IBS with history of chronic diarrhea--Continue Lomotil 1 tablet 4 times daily
DVT proph--SCDs
code status--Full code
Original Note:
Today's Communication/Plan
-
Continue monitoring for any worsening symptoms, monitor blood pressure
Assessment / Plan
Assessment / Plan
Assessment:
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
diverticulitis came to the [facility] ED on 08/07/2024 due to increased headache, worsening diplopia and recent complaints of increased blood pressure. Patient underwent CT CT scans and MRI of the head which did not show any acute
findings. Patient currently being followed by neuro, input appreciated. Patient was admitted for further management.
CT Head W/o Iv Contrast (08/07/2024):
No acute intracranial abnormalities.
Findings again seen compatible with diffuse cortical atrophy with nonspecific white matter changes as described above.
MR Brain W/o & With Contrast (08/07/2024):
No acute intracranial abnormality noted. Advanced chronic senescent changes.
CT Head & Neck Angio W/wo IV (08/07/2024):
No significant vascular occlusion, aneurysm or dissection.
EEG (08/07/2024)
This is a normal awake and asleep EEG. There is no evidence of focal slowing or epileptiform activity. A normal EEG does not rule out epilepsy. If the clinical picture warrants, a sleep-deprived awake and sleep record may be helpful.
Plan:
# Acute diplopia with left-sided gait
# Chronic left-sided diplopia along with left-sided neck torticollis hypertension
-CT, MRI as above, no acute findings shown
-Neuro consulted, input appreciated
-Patient to continue Plavix 75 mg once a day
-EEG as above, no acute findings seen
-Continue fall precautions
-PT/OT
-Mild elevation in LDL (110)
# Hypertensive urgency causing headaches
-IV hydralazine as needed
-Continue monitoring blood pressure
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
-Patient to follow-up with neurosurgery outpatient
# Multiple sclerosis
-Symptoms not thought to be due to recent MS flare
-Continue prior management
# Type 2 diabetes
-HbA1c pending
-Insulin sliding scale as needed
# IBS with history of chronic diarrhea
-Continue Lomotil 1 tablet 4 times daily
DVT prophylaxis: SCDs
Full code (as per conversation with patient)
Anticipated Discharge: Within 24 hours
Subjective/Interval History
-
Date of Service: August 08, 2024
Patient do not have any acute concerns when seen this morning. She was just very concerned about the results of the MRI. Let patient know about no acute findings seen, was very relieved afterwards. Discussed with her regarding her CODE STATUS and
she wanted to remain full code.
Objective Data
-
Labs:
Laboratory Results
08/08/24 08/08/24
06:43 06:44
WBC 6.7
Hgb 13.8
Hct 40.4
Plt Count 253
Sodium 141
Potassium 4.1
Chloride 108 H
Carbon Dioxide 26
BUN 12
Creatinine 0.7
Glucose 116 H
Calcium 9.6
Total Bilirubin 0.9
AST 21
ALT 11
Alkaline Phosphatase 66
Vital Signs:
Vital Signs
Temp Pulse Resp BP Pulse Ox
97.4 F 79 16 144/79 96
08/08/24 11:00 08/08/24 11:00 08/08/24 11:00 08/08/24 11:00 08/08/24 11:00
I&O
08/07/24 08/08/24 08/09/24
06:59 06:59 06:59
Intake Total 120 / 120
Balance 120 / 120
Review of Systems
-
History Source: Patient
Constitutional: Denies Fever, Chills or Weakness (Not increased from before)
Respiratory: Denies Cough or Trouble Breathing
Cardiac: Denies Chest Pain or Syncope
Abdomen/GI: Denies Abdominal Pain, Nausea or Vomiting
Musculoskeletal: Reports No Symptoms
Neuro: Reports Headache (Much reduced from before)
Physical Exam
-
General: Well Developed, No Apparent Distress, Comfortable and Conversant
HEENT: Normocephalic, Atraumatic and Other (Double vision on the left side, normal vision while looking straight head)
Respiratory: Clear to Auscultation
Cardiac: Regular Rhythm and S1/S2
GI: Soft, Nontender and Nondistended
Musculoskeletal: No Clubbing, No Cyanosis and No Edema
Skin: Warm and Dry
Neuro: Awake, Alert and Oriented; Negative No Motor Deficits or No Sensory Deficits
Psych: Calm
Data Reviewed
-
CT Scan: Report Reviewed by me, Discussed with Physician and Discussed with Patient
MRI: Report Reviewed by me, Discussed with Physician and Discussed with Patient
Labs: Labs Reviewed by me, Discussed with Physician and Discussed with Patient
--- NOTE | 2024-08-08 15:56 | CM ---
Patient seen bedside, initial assessment completed. Admitted for double vision when looking straight, posterior headache.
Patient reports that she lives alone in a 2STH- 1 step to enter from the front porch and 1 step from the garage. Patient is independent w/ use of a tri-wheeled RW at baseline. Independent w/ ADLs. Patient has chair glide, RW in each room of her
home, shower chair and grab bar.
Patient shares she has years of experience w/ OP therapy and inpatient rehab for therapy. Prev known to [facility] for [facility] care.
Address, points of contact and insurance verified
PCP: Yrn Jackson
Pharmacy: [facility]
Therapy assessed patient and is recommending HH at d/c, patient interested in home PT and VN. Patient prefers [facility], however, they do not provide VN. Patient agreeable to another provider agency that can support both PT and VN.
Plan: Home w/ HC
[2024-08-08 16:45] LABS: Glucose - Point of Care 151 mg/dl (70-99)
[2024-08-08] MEDS: NOVOLOG FLEXPEN-LOW RESISTANCE 1 UNITS SC (17:48)
[2024-08-08] MEDS: PERCOCET 5/325 1 TABLET PO (20:27)
[2024-08-08 21:43] LABS: Glucose - Point of Care 93 mg/dl (70-99)
[2024-08-09 03:33] VITALS: BP 138/70
[2024-08-09 05:47] VITALS: BMI 22.1
[2024-08-09 07:00] VITALS: BP 125/80
[2024-08-09 07:24] LABS: Glucose - Point of Care 106 mg/dl (70-99)
[2024-08-09 07:35] LABS: % Basophils 0.7 % (0-2); % Eosinophils 4.6 % (0-6); % Immature Granulocytes 0.2 % (0-0.5); % Lymphocytes 24.1 % (20.5-51.1); % Monocytes 8.2 % (1.7-9.3); % Neutrophils 62.2 % (42.2-75.2); Absolute Eosinophils 0.3 10^3/uL (0-0.7); Absolute Lymphocytes 1.5 10^3/uL (1.2-3.4); Absolute Monocytes 0.5 10^3/uL (0.1-0.6); Absolute Neutrophils 3.8 10^3/uL (1.4-6.5); Hematocrit 40.4 % (37.0-47.0); Hemoglobin 14.2 g/dL (12.0-16.0); Mean Corp Hgb Conc. 35.1 g/dL (33.0-37.0); Mean Corpuscular Hgb 28.3 pg (27.0-31.0); Mean Corpuscular Volume 80.5 fL (81.0-99.0); Nucleated Red Blood Cells % 0 %; Platelet Count 246 10^3/uL (130-400); Red Blood Cell Count 5.02 10^6/uL (4.20-5.40); Red Cell Dist. Width 13.5 % (11.5-14.5); White Blood Cell Count 6.1 10^3/uL (4.8-10.8)
[2024-08-09] MEDS: NOVOLOG FLEXPEN-LOW RESISTANCE SC ×2 (07:55→11:39)
--- NOTE | 2024-08-09 08:36 | W.PN.HOSP.TC ---
Addendum entered and electronically signed by Susan Fung MD 08/09/24 12:55:
I saw and evaluated the patient independently. I reviewed the resident�s note and agree with findings and plan as documented by Dr. Vides.
GENERAL: well developed, well nourished, female in no apparent distress
HEENT: NC/AT
HEART: regular rate and rhythm, +S1, +S2-
LUNGS : clear to auscultation bilaterally
ABDOM: soft, nontender, nondistended, + bowel sounds
EXT: no cyanosis, clubbing, or edema
NEUROLOGIC: grossly intact
Acute diplopia (Chronic left-sided diplopia along with left-sided neck torticollis) with left-sided gait--strongly suspected TIA--apprec neuro--CT/MRI all negative for acute findings--EEG negative--cont plavix-- d/c
Hypertensive urgency likely causing headaches--IV hydralazine as needed--Continue monitoring blood pressure
paroxysmal atrial fibrillation--periods of increased heart rate but pt not on any rate controlling meds
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
Multiple sclerosis--Symptoms not thought to be due to recent MS flare--Continue prior management
Type 2 diabetes--HbA1c pending--Insulin sliding scale as needed
IBS with history of chronic diarrhea--Continue Lomotil 1 tablet 4 times daily
DVT proph--SCDs
code status--Full code
ok for d/c
Original Note:
Today's Communication/Plan
-
Patient was likely to be medically cleared for discharge today.
Assessment / Plan
Assessment / Plan
Assessment:
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
diverticulitis came to the [facility] ED on 08/07/2024 due to increased headache, worsening diplopia and recent complaints of increased blood pressure. Patient underwent CT CT scans and MRI of the head which did not show any acute
findings. Patient currently being followed by neuro, input appreciated. Patient was admitted for further management. Patient continues to do well, and will be medically cleared for discharge today as she has had no acute events. Patient is to
follow-up with neurosurgery in the outpatient setting for further management regarding her meningioma.
CT Head W/o Iv Contrast (08/07/2024):
No acute intracranial abnormalities.
Findings again seen compatible with diffuse cortical atrophy with nonspecific white matter changes as described above.
MR Brain W/o & With Contrast (08/07/2024):
No acute intracranial abnormality noted. Advanced chronic senescent changes.
CT Head & Neck Angio W/wo IV (08/07/2024):
No significant vascular occlusion, aneurysm or dissection.
EEG (08/07/2024)
This is a normal awake and asleep EEG. There is no evidence of focal slowing or epileptiform activity. A normal EEG does not rule out epilepsy. If the clinical picture warrants, a sleep-deprived awake and sleep record may be helpful.
Plan:
# Acute diplopia with left-sided gait, strongly suspected TIA
# Chronic left-sided diplopia along with left-sided neck torticollis hypertension
-CT, MRI as above, no acute findings shown
-Neuro consulted, input appreciated
-Patient to continue Plavix 75 mg once a day
-EEG as above, no acute findings seen
-Continue fall precautions
-PT/OT
-Mild elevation in LDL (110)
-Patient to be discharged today back home with PT and VN
# Hypertensive urgency causing headaches
-IV hydralazine as needed
-Continue monitoring blood pressure
-Will need to follow-up with PCP regarding hypertensive medications
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
-Patient to follow-up with neurosurgery outpatient
# Multiple sclerosis
-Symptoms not thought to be due to recent MS flare
-Continue prior management
# Type 2 diabetes
-HbA1c 5.6
-Insulin sliding scale as needed
# IBS with history of chronic diarrhea
-Continue Lomotil 1 tablet 4 times daily
DVT prophylaxis: SCDs
Full code (as per conversation with patient)
Anticipated Discharge: Today
Subjective/Interval History
-
Date of Service: August 09, 2024
Patient has been feeling well, just complained of some mild lightheadedness as she got out of her bed today but otherwise has no complaints. Said that she is looking forward to going home today as possible.
Objective Data
-
Labs:
Laboratory Results
08/09/24 08/09/24
06:27 08:29
WBC 6.1
Hgb 14.2
Hct 40.4
Plt Count 246
Sodium Cancelled Pending
Potassium Cancelled Pending
Chloride Cancelled Pending
Carbon Dioxide Cancelled Pending
BUN Cancelled Pending
Creatinine Cancelled Pending
Glucose Cancelled Pending
Calcium Cancelled Pending
Total Bilirubin Cancelled Pending
AST Cancelled Pending
ALT Cancelled Pending
Alkaline Phosphatase Cancelled Pending
Vital Signs:
Vital Signs
Temp Pulse Resp BP Pulse Ox
97.3 F 67 18 138/70 98
08/09/24 03:33 08/09/24 03:33 08/09/24 03:33 08/09/24 03:33 08/09/24 03:33
I&O
08/08/24 08/09/24 08/10/24
06:59 06:59 06:59
Intake Total 120 / 120 840 / 840
Balance 120 / 120 840 / 840
Review of Systems
-
History Source: Patient
Constitutional: Denies Fever, Chills or Weakness (Not increased from before)
Respiratory: Denies Cough or Trouble Breathing
Cardiac: Denies Chest Pain or Syncope
Abdomen/GI: Denies Abdominal Pain, Nausea or Vomiting
Musculoskeletal: Reports No Symptoms
Neuro: Denies Headache
Physical Exam
-
General: Well Developed, No Apparent Distress, Comfortable and Conversant
HEENT: Normocephalic, Atraumatic and Other (Double vision on the left side, normal vision while looking straight head)
Respiratory: Clear to Auscultation
Cardiac: Regular Rhythm and S1/S2
GI: Soft, Nontender and Nondistended
Musculoskeletal: No Clubbing, No Cyanosis and No Edema
Skin: Warm and Dry
Neuro: Awake, Alert and Oriented
Psych: Calm
Data Reviewed
-
Labs: Labs Reviewed by me, Discussed with Physician, Discussed with Nurse and Discussed with Patient
[2024-08-09] MEDS: MAG-TAB SR 84 MG PO (09:04)
[2024-08-09] MEDS: OSCAL 500 + D 500 MG PO (09:04)
[2024-08-09] MEDS: ZINC 50 MG PO (09:04)
[2024-08-09] MEDS: VITAMIN C 250 MG PO (09:04)
[2024-08-09] MEDS: B COMPLEX w/VITAMIN C 1 CAPLET PO (09:04)
[2024-08-09] MEDS: PLAVIX 75 MG PO (09:05)
[2024-08-09] MEDS: LOMOTIL 1 TABLET PO (09:05)
[2024-08-09 09:52] LABS: ALT (SGPT) 12 U/L (0-35); AST (SGOT) 22 U/L (14-36); Albumin 4.1 g/dl (3.5-5.0); Alkaline Phosphatase 62 U/L (38-126); Blood Urea Nitrogen 15 mg/dl (7-17); Calcium 9.9 mg/dl (8.4-10.2); Carbon Dioxide 23 mmol/L (22-30); Chloride 104 mmol/L (98-107); Estimated Creatinine Clearance 45 ml/min; Glucose 153 mg/dl (70-99); Potassium 4.2 mmol/L (3.5-5.1); Sodium 138 mmol/L (135-145); Total Bilirubin 0.9 mg/dl (0.2-1.3); Total Protein 6.4 g/dl (6.3-8.2); eGFR > 60.00
[2024-08-09 11:00] VITALS: BP 139/99
--- NOTE | 2024-08-09 11:15 | CM ---
CM reviewed chart, patient seen in chair, plan for discharge today. Patient agreeable to referral to VN, placed in [facility]. Patient reports her friend will provide transportation home around 3:30 p.m. IMM reviewed, signed, placed in chart,
patient provided with copy. CM will continue to follow for all discharge planning needs.
Plan; home with referral to VN
[2024-08-09 11:17] VITALS: BP 139/99
--- NOTE | 2024-08-09 11:29 | W.PN.NEURO.1 ---
Today's Communication / Plan
-
.
Subjective/Objective
Subjective Data
Date of Service: August 09, 2024
Neurology follow-up note
Mr. Baer reports no recurrent episodes of language dysfunction. She denies having headaches, no change in chronic intermittent diplopia on the left horizontal gaze. The patient states that she did tolerate aspirin in the past.
Routine EEG�normal
Brain MRI with and without sebastian (08/07/2024)�right posterior fossa meningioma measuring up to 1.2 cm, with slight mass effect on the right posterolateral aspect of the medulla, slightly progressed, stable moderate to severe hyperintensity within the
periventricular and deep subcortical white matter and fanny, no evidence of acute infarcts.
CTA head/neck�no evidence of hemodynamically significant stenosis
PMH:RRMS, HTN, DLP, GERD, COPD, OA, SEBASTIAN, IBS, fibromyalgia, Ankylosing spondylitis, osteoporosis, vitamin D deficiency, chronic pain syndrome
PSH: Lumbar laminectomies, appendectomy, bilateral median decompression, left shoulder arthroplasty Zenker's diverticulum repair
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
FH: Not contributory
All: Sulfas, Acetaminophen, amiloride, amlodipine, azithromycin, cefaclor, cefepime, cefuroxime, Cipro, erythromycin, diclofenac, diltiazem, Dilaudid, lansoprazole, hydrocortisone, losartan, metoprolol, misoprostol, neomycin, pravastatin,
sertraline, iodine, simvastatin, sulfas, Topamax, valdecoxib, tramadol, verapamil polymyxin
ROS: Constitutional: Negative. Negative for chills, fever and unexpected weight change.
HENT: Positive for chronic diplopia
Eyes: Negative. Negative for photophobia, pain and visual disturbance.
Respiratory: Negative for cough, choking and shortness of breath.
Cardiovascular: Negative for chest pain, palpitations and leg swelling.
Gastrointestinal: Positive for chronic diarrhea, bowel incontinence
Endocrine: Negative. Negative for cold intolerance.
Genitourinary: Negative for dysuria, flank pain and urgency.
Musculoskeletal: Positive for back stiffness
Skin: Negative for rash.
Allergic/Immunologic: Negative. Negative for immunocompromised state.
Neurological: Positive for chronic imbalance, chronic right foot numbness, regarding the legs
General: Well developed. In no acute distress.
Cardio: Regular rate and rhythm without murmur. Extremities are without cyanosis or edema.
Neuro:
Mental Status: Alert, oriented to person, place, and date. Normal attention and recall. Good fund of knowledge. Follows complex requests across the midline. Comprehension, naming, and repetition intact. Immediate and delayed recall 3/3.
Cranial Nerves: Pupils are equally round, surgical. EOMs full. Visual ayers full to confrontation. No ptosis. No nystagmus. V1-V3 intact to light touch and pinprick bilaterally, symmetric. Face symmetric. Normal hearing AU. The palate
elevated well. SCMs and traps 5/5. Tongue midline. No dysarthria.
Motor: Normal bulk and tone. No pronator or arm drift. Strength 5/5 throughout. No clonus.
Reflexes: 2+ throughout the upper extremities and knees. Plantar responses flexor bilaterally.
Sensory: Reduced vibration at the right toe and ankle
Coordination: No dysmetria or tremor.
Gait: deferred
Assessment and Plan:
I. 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 Differential diagnosis includes vascular versus epileptic.
II. Right posterior fossa meningioma with mass effect on the right posterolateral aspect of the medulla
III. RRMS
IV. HTN
-Continue Telemetry monitoring
-Fall precautions
-Switch Plavix to aspirin 81 mg once a day
-Neurosurgery consult (can be done as outpatient)
-Consider OP cEEG
-PT
-DVT prophylaxis.
-Please recall neurology services any questions or concerns
I personally reviewed all radiology and labs along with past medical records pertinent to current medical problems. Total time spent in patient care is 35 minutes.
Thank you for allowing us to participate in the care of this patient. Please do not hesitate to contact us with any questions or concerns.
Objective Data
Vital Signs
Temp Pulse Resp BP Pulse Ox
36.5 C 100 18 139/99 95
08/09/24 11:17 08/09/24 11:17 08/09/24 11:17 08/09/24 11:17 08/09/24 11:17
Lab Results
08/09/24 06:27
08/09/24 08:29
Sodium 138 mmol/L (135-145) 08/09/24 08:29
Potassium 4.2 mmol/L (3.5-5.1) 08/09/24 08:29
BUN 15 mg/dl (7-17) 08/09/24 08:29
Glucose 153 mg/dl (70-99) H 08/09/24 08:29
Calcium 9.9 mg/dl (8.4-10.2) 08/09/24 08:29
LDL Cholesterol, Calc 110 mg/dl 08/08/24 06:43
Patient Allergies
acetaminophen [From Ultracet] Allergy (Verified 08/07/24 14:31)
Unknown
amiloride Allergy (Verified 08/07/24 14:31)
Unknown
amlodipine besylate [From Norvasc] Allergy (Verified 08/07/24 14:31)
Unknown
azithromycin [From Zithromax] Allergy (Verified 08/07/24 14:31)
Unknown
bacitracin [From Cortisporin] Allergy (Verified 08/07/24 14:31)
EYE DROPS-UNKNOWN
cefaclor [From Ceclor] Allergy (Verified 08/07/24 14:31)
Unknown
cefixime [From Suprax] Allergy (Verified 08/07/24 14:31)
Unknown
cefuroxime axetil [From Ceftin] Allergy (Verified 08/07/24 14:31)
Unknown
ciprofloxacin [From Cipro] Allergy (Verified 08/07/24 14:31)
Unknown
ciprofloxacin HCl [From Cipro] Allergy (Verified 08/07/24 14:31)
Unknown
clarithromycin [From Biaxin] Allergy (Verified 08/07/24 14:31)
Unknown
cyproheptadine HCl [From Periactin] Allergy (Verified 08/07/24 14:31)
Unknown
diclofenac [From Arthrotec] Allergy (Verified 08/07/24 14:31)
Unknown
diltiazem HCl [From Cardizem] Allergy (Verified 08/07/24 14:31)
Unknown
etidronate disodium [From Didronel] Allergy (Verified 08/07/24 14:31)
Unknown
fluoxetine HCl [From Prozac] Allergy (Verified 08/07/24 14:31)
Unknown
flurbiprofen [From Ansaid] Allergy (Verified 08/07/24 14:31)
Unknown
hydrocortisone [From Cortisporin] Allergy (Verified 08/07/24 14:31)
EYE DROPS-UNKNOWN
hydromorphone HCl [From Dilaudid] Allergy (Verified 08/07/24 14:31)
Unknown
lansoprazole [From Prevacid] Allergy (Verified 08/07/24 14:31)
Unknown
losartan potassium [From Cozaar] Allergy (Verified 08/07/24 14:31)
Unknown
metoprolol succinate [From Toprol XL] Allergy (Verified 08/07/24 14:31)
Unknown
misoprostol [From Arthrotec] Allergy (Verified 08/07/24 14:31)
Unknown
neomycin [From Cortisporin] Allergy (Verified 08/07/24 14:31)
EYE DROPS-UNKNOWN
polymyxin B [From Cortisporin] Allergy (Verified 08/07/24 14:31)
EYE DROPS-UNKNOWN
pravastatin Allergy (Verified 08/07/24 14:31)
Unknown
quinapril HCl [From Accupril] Allergy (Verified 08/07/24 14:31)
Unknown
sertraline HCl [From Zoloft] Allergy (Verified 08/07/24 14:31)
Unknown
shellfish derived Allergy (Verified 08/07/24 14:31)
Unknown
simvastatin Allergy (Verified 08/07/24 14:31)
Unknown
Sulfa (Sulfonamide Antibiotics) Allergy (Verified 08/07/24 14:31)
ALL SULFA DRUGS
topiramate [From Topamax] Allergy (Verified 08/07/24 14:31)
Unknown
tramadol Allergy (Verified 08/07/24 14:31)
Unknown
tramadol HCl [From Ultracet] Allergy (Verified 08/07/24 14:31)
Unknown
valdecoxib [From Bextra] Allergy (Verified 08/07/24 14:31)
Unknown
verapamil [From Covera-HS] Allergy (Verified 08/07/24 14:31)
Unknown
[2024-08-09 11:36] LABS: Glucose - Point of Care 108 mg/dl (70-99)
[2024-08-09 14:19] LABS: Magnesium 1.8 mg/dl (1.6-2.3)
--- NOTE | 2024-08-09 14:31 | W.DCSUMMARY ---
Addendum entered and electronically signed by Susan Fung MD 08/09/24 14:51:
Read, reviewed, and agree. See same day progress note for additional details. Time spent coordinating care, DC planning, review of DC plan of care with resident, transition of care, review of records in EMR, med rec, consults, notes, d/w
consultants, nursing, family, and CM = 36 minutes
Patient was noted to have bursts of tachycardia up to the 140s on the monitor. She also had episodes of short runs of V. tach asymptomatic. Upon reviewing her medication list, she is not on any rate controlling medications. In fact, she seems
allergic to every medication that she touches. It may be beneficial to review her allergy list as side effects are not a reason to stop a medication. Referral to cardiology is also a consideration for better rate control with exertion.
Original Note:
Discharge Summary
Discharge Data
Date of Admission: 08/07/24
Date of Discharge: 08/09/24
-
Pending Results: No
Hospital Course
CC to: Dr. Yrn Jackson
Discharging Physician : Dr. Hoang Vides, Dr. Susan Fung
�
Disposition�:�Home with home care
�
Primary�care�physician�: Dr. Yrn Jackson
�
Principal�Discharge�Diagnosis�:
Acute diplopia (Chronic left-sided diplopia along with left-sided neck torticollis) with left-sided gait due to strongly suspected TIA
Hypertensive urgency likely causing headaches
�
Chronic�Discharge�Diagnosis:�
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
Multiple sclerosis
Type 2 diabetes
IBS with history of chronic diarrhea
Hospital�Course�:��
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
diverticulitis came to the [facility] ED on 08/07/2024 due to increased headache, worsening diplopia and recent complaints of increased blood pressure. Patient underwent CT scans and MRI of the head which did not show any acute findings.
Neurology was consulted due to concerns of patient's symptoms being due to a possible stroke versus possible acute MS flare. Patient was admitted for further management. Patient continued to do well and had no further symptoms while she was
admitted. She was medically cleared for discharge today as she has had no acute adverse events. Patient is to follow-up with neurosurgery in the outpatient setting for further management regarding her meningioma. Patient to also follow up with her
PCP in the outpatient setting to determine if she needs to be on any hypertensive medication. Patient also advised to follow up with her Neurologist for continued management of her MS.
Important�imaging�findings�:��
CT Head W/o Iv Contrast (08/07/2024):
No acute intracranial abnormalities.
Findings again seen compatible with diffuse cortical atrophy with nonspecific white matter changes as described above.
MR Brain W/o & With Contrast (08/07/2024):
No acute intracranial abnormality noted. Advanced chronic senescent changes.
CT Head & Neck Angio W/wo IV (08/07/2024):
No significant vascular occlusion, aneurysm or dissection.
EEG (08/07/2024)
This is a normal awake and asleep EEG. There is no evidence of focal slowing or epileptiform activity. A normal EEG does not rule out epilepsy. If the clinical picture warrants, a sleep-deprived awake and sleep record may be helpful.
Procedure�findings�:��None
�
Discharge Plan
-
Patient Disposition: Home with Home Care
Discharge Diagnosis/Procedures: Acute diplopia (Chronic left-sided diplopia along with left-sided neck torticollis) with left-sided gait due to strongly suspected TIA
Hypertensive urgency likely causing headaches
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
Multiple sclerosis
Type 2 diabetes
IBS with history of chronic diarrhea
Condition: Fair
Diet: Regular
Activity: As tolerated
Driving Restrictions: As prior to admission
Bathing Restrictions: None
Other Services: VN
Specialty Instructions: Weigh Daily- Call MD for wt gain/loss 3 lbs overnight/5 lbs in 1 week
Referrals:
Ynr Jackson MD [Family Provider] -
Additional Discharge Medication Instructions: Follow up with PCP regarding hypertension medications (potassium and magnesium within normal limits)
Follow up with Neurosurgery outpatient regarding Meningioma
Continue following up with Neurology regarding history of MS
Continue therapy with aspirin 81 mg daily
Prescriptions:
New
aspirin 81 mg Tablet,Delayed Release (Dr/Ec)
81 mg PO DAILY Qty: 0 0RF
Continued
cholecalciferol (vitamin D3) 1,000 UNITS tablet
1,000 units PO BID
olopatadine [Pataday Once Daily Relief] 2.5 ML drops
1 drp BOTH EYES DAILYPRN PRN (Reason: flare ups)
diphenoxylate-atropine 2.5-0.025 mg Tablet
1 tab PO QID
zinc sulfate 50 mg zinc (220 mg) Tablet
50 mg PO DAILY
ascorbic acid (vitamin C) [Vitamin C] 250 mg Tablet,Chewable
250 mg PO DAILY
vitamin B complex Tablet
1 tab PO DAILY
coenzyme Q10 [CoQ-10] 100 mg Capsule
100 mg PO BID
calcium carbonate-vitamin D3 [Calcium 500 + D] 500 mg-10 mcg (400 unit) Tablet,Chewable
1 tab PO DAILY
omega-3 fatty acids-fish oil 684-1,200 mg Capsule,Delayed Release(Dr/Ec)
1 cap PO DAILY
magnesium oxide 400 mg magnesium Tablet
400 mg PO DAILY
elderberry fruit 350 mg Capsule
350 mg PO DAILY
oxycodone-acetaminophen [Percocet] 5-325 mg tablet
1 tab PO Q4HPRN PRN (Reason: severe pain)
Discharge Orders:
Discharge Patient (As Directed); Ordered 08/09/24
Ordered By: Hoang Vides
Discharge Date and Time
Print Language: DIVEHI
[2024-08-09 15:01] VITALS: BP 153/85
== END 2024-08-09 15:21 | disposition home health service (06) | DRG 69 ==
LOC: 4 WEST ACU 19:07
PROVIDERS: Clinical Nurse Specialist Family Health; Emergency Medicine; ADMITTING PHYSICIAN Hospitalist; ATTENDING PHYSICIAN Internal Medicine; CONSULT PHYSICIAN Psychiatry & Neurology Neurology; EMERGENCY PHYSICIAN Student in an Organized Health Care Education/Training Program; FAMILY PHYSICIAN Internal Medicine
DX: G45.9 Transient cerebral ischemic attack, unspecified (principal); I16.0 Hypertensive urgency; I10 Essential (primary) hypertension; I95.1 Orthostatic hypotension; M43.6 Torticollis; R48.0 Dyslexia and alexia; G35 Multiple sclerosis; D32.0 Benign neoplasm of cerebral meninges; E11.9 Type 2 diabetes mellitus without complications; K21.00 Gastro-esophageal reflux disease with esophagitis, without bleeding; G89.4 Chronic pain syndrome; J44.9 Chronic obstructive pulmonary disease, unspecified; M81.0 Age-related osteoporosis without current pathological fracture; K58.0 Irritable bowel syndrome with diarrhea; Z96.651 Presence of right artificial knee joint; Z96.642 Presence of left artificial hip joint; Z96.612 Presence of left artificial shoulder joint; Z87.891 Personal history of nicotine dependence
CPT/HCPCS: 70450; 70496; 70498; 70553; 80053; 80061; 82962; 83036; 83735; 85025; 85652; 86140; 95816; 96374; 97162; 97167; 99285; Q9967

== ENCOUNTER 2025-03-25 07:23 | Emergency (ER) | payer OTHER, SELFPAY ==
[2025-03-25] VITALS (9 sets, daily range): BP systolic 138–173; BP diastolic 66–101; PULSE 76; BMI 21.7
--- NOTE | 2025-03-25 08:03 | ED.GENMED ---
History of Present Illness
<Mel Brown MD, Resident - Last Filed: 03/25/25 11:04>
General
Chief Complaint: Blood Pressure Problem
Source: patient
Time Seen by Provider: 03/25/25 07:28
History of Present Illness
History of Present Illness:
84-year-old female with extensive past medical history Mo significant for MS, chronic left-sided diplopia, chronic left-sided torticollis, COPD (PF doses, adrenal insufficiency, orthostatic hypotension presents to the ER for elevated home blood
pressure readings. Over the past 5 days, she has noted her blood pressure to be 162/111, 150/108, 128/78, 145/95, 147/101, 145/98, 135/80. Her baseline is around 100/80. She has been having a 5-day episode of tinnitus and believes her elevated
blood pressure is secondary to that. She denies any dizziness, lightheadedness or feelings like she is get a pass out, blurry vision, focal weakness. She denies any chest pain, heart palpitations, shortness of breath, nausea, vomiting, diarrhea,
dysuria, hematuria. She does have a history of bilateral lower extremity swelling. Her left leg is slightly more swollen than the left but no erythema, no warmth, no pain.
Past History
<Mel Brown MD, Resident - Last Filed: 03/25/25 11:04>
Past History
ED Past Medical History: COPD (with bronchiectasis ), HTN, NIDDM, Other (MS, esophagitis, diverticulosis, IBS, glaucoma, Meningioma, chronic left-sided diplopia, chronic left-sided torticollis, Zenker's diverticulum, adrenal insufficiency,
orthostatic hypotension) and Other (Ankylosing spondylitis, osteoporosis, osteoarthritis, PVCs)
ED Past Surgical History: Appendectomy, Orthopedic and Tonsilectomy
Social History
Tobacco: Non-smoker
Alcohol: None
Drug: None
Employment: Retired
Family History
Family History: Other
Review of Systems
<Mel Brown MD, Resident - Last Filed: 03/25/25 11:04>
Review of Systems
Allergies reviewed?: Yes
Constitutional: Reports no symptoms
EENT: Reports other (tinnitus, runny nose)
Respiratory: Reports no symptoms
Cardiac: Reports no symptoms
ABD/GI: Reports no symptoms
: Reports no symptoms
Musculoskeletal: Reports no symptoms
Skin: Reports no symptoms
Neurological: Reports no symptoms
Endocrine: Reports no symptoms
Hematologic/Lymphatic: Reports no symptoms
Psychiatric: Reports no symptoms
Phy Exam
<Mel Brown MD, Resident - Last Filed: 03/25/25 11:04>
Physical Exam
Physical Exam:
General: Well-appearing
Head: Atraumatic
Cardiac: Regular S1, S2, no murmurs
Respiratory: Clear breath sounds bilaterally
Abdomen: Soft, nontender, nondistended, normal bowel sounds
Neurological: Cranial nerves II through XII intact, NIH is 0, chronic right-sided weakness associated with MS
Extremities: Slightly increased left-sided pedal edema greater than right
Course
<Mel Brown MD, Resident - Last Filed: 03/25/25 11:04>
Orders/Labs/Results
Orders:
Orders
03/25/25 08:28
Pt Eval And Treat Urgent
Activity Level: Ambulate
03/25/25 09:36
Case Management Consult ONCE
Case Management Consult: Other
03/25/25 10:06
Case Management Consult ONCE
Case Management Consult: VN/Home Care
Vital Signs
Initial and Last Documented VS:
Initial Vital Signs
Temp Pulse Resp BP Pulse Ox
97.6 F 94 18 169/101 95
03/25/25 07:24 03/25/25 07:24 03/25/25 07:24 03/25/25 07:24 03/25/25 07:24
Last Documented Vital Signs
Temp Pulse Resp BP Pulse Ox
97.7 F 75 18 138/66 98
03/25/25 10:19 03/25/25 10:19 03/25/25 10:19 03/25/25 10:19 03/25/25 10:19
<Kemi Michaels MD - Last Filed: 03/25/25 09:37>
Orders/Labs/Results
Orders:
Orders
03/25/25 08:28
Pt Eval And Treat Urgent
Activity Level: Ambulate
03/25/25 09:36
Case Management Consult ONCE
Case Management Consult: Other
03/25/25 10:06
Case Management Consult ONCE
Case Management Consult: VN/Home Care
Vital Signs
Initial and Last Documented VS:
Initial Vital Signs
Temp Pulse Resp BP Pulse Ox
97.6 F 94 18 169/101 95
03/25/25 07:24 03/25/25 07:24 03/25/25 07:24 03/25/25 07:24 03/25/25 07:24
Last Documented Vital Signs
Temp Pulse Resp BP Pulse Ox
97.7 F 75 18 138/66 98
03/25/25 10:19 03/25/25 10:19 03/25/25 10:19 03/25/25 10:19 03/25/25 10:19
<Mel Brown MD, Resident - Last Filed: 03/25/25 11:04>
MDM/Problems Addressed
Differential Diagnosis Includes:
Hypertensive urgency, hypertensive emergency, tinnitus, upper respiratory tract infection, stroke, DE, DVT
MDM/Problems Addressed:
Patient's blood pressure in the ER and home blood pressures are unremarkable for hypertensive urgency or emergency. She denies any dizziness, lightheadedness, chest pain, heart palpitations, focal neurological deficits and physical exam supports
that. Given her only complaint is slight runny nose and tinnitus, no indication for further work up related to high blood pressure at this time. She has an appointment with her social services specialist next week. Will recommend follow up with them for further
BP management.
Will get a PT consult to evaluate her tinnitus.
Physical exam for slight L>R lower extremity edema not concerning for DVT. No tenderness, warmth or erythema.
PT evaluated and patient is requesting home PT. Will discuss with CM. They are okay with home visiting nurses.
Chronic conditions affecting care: Other (MS, chronic L sided diplopia, chronic L sided torticollis, orthostatic hypotension. )
<Mel Brown MD, Resident - Last Filed: 03/25/25 11:04>
*Pulse Oximetry
SaO2: 97
Oxygen Mode of Delivery: Room air
Patient hypoxic: no
*Critical Care Note
Total Time (30-74mins, 75-104mins- exclusive of procedures): Not Applicable
Data Reviewed
Review of Other/Old Records Reveals: Labs (08/09/24 hg 14.2) and Radiology Studies (head and neck CTA 08/07/24 No significant vascular occlusion, aneurysm or dissection.)
Source: patient and records
ED Attending Note
<Mel Brown MD, Resident - Last Filed: 03/25/25 11:04>
-
Portions of this chart may have been created with voice recognition software.� Occasional wrong word or��sound alike� substitutions may have occurred due to the inherent limitations of voice recognition software.
<Kemi Michaels MD - Last Filed: 03/25/25 09:37>
ED Attending Note
Patient seen and examined by attending physician: Yes
I performed a history and physical exam of patient and discussed management with resident, I reviewed resident's note and agree with documented findings and plan of care.: Yes
ED Attending Note:
I have seen and evaluated the patient with a [id number] encounter. I have spoken to the [resident] and involved in the medical history, the physical exam, medical decision making.
Evaluation and management service: agree unless noted differently below.
Results interpretation: agree unless noted differently below.
84-year-old woman with history of hypertension, diabetes, multiple sclerosis presenting to the emergency department elevated blood pressure. Patient states for the past few days she has had her tinnitus has been flaring. She states that she
randomly gets tinnitus. Unclear what causes it. She has been having some congestion. She is only on a baby aspirin. she states that when this happened her blood pressure gets elevated. Her blood pressures the past few days have been in the 120s
to the 160s. Because it was in the 180s today at home she came in for further evaluation. She denies any chest pain difficulty breathing nausea vomiting lightheadedness dizziness changes in her urination. Per chart review it appears that patient
was supposed to see her primary care doctor regarding her high blood pressure. She does state that she saw cardiology who did not want to start her on any antihypertensives given her list of allergies. She is scheduled to see them next week. At
this time patient has no complaints.
GENERAL: in no acute distress
HEENT: normocephalic, extraocular movements intact, moist oral mucosa
NECK: normal inspection
RESPIRATORY: no respiratory distress, clear to auscultation bilaterally
CARDIOVASCULAR: regular rate and rhythm
ABDOMEN/: soft, non-distended, non-tender to palpation, no rebound or guarding
EXTREMITIES: non-tender
NEUROLOGIC: awake and alert, moves all extremities, equal strength in upper and lower extremities, normal [id number], cranial nerves intact
SKIN: warm
84-year-old woman with history of hypertension presenting to the emergency department elevated blood pressure. On arrival patient blood pressure was 169/101 and the during my evaluation was 142/89. Patient is asymptomatic with no complaints
besides some tinnitus which regularly flares. She does have a recent congestion. Could be component of vestibular neuritis versus labyrinthitis versus M�ni�re. From a hypertension standpoint patient is asymptomatic. Will discuss with physical
therapy for evaluation. Patient is scheduled to see her social services specialist next week so will not start her on any antihypertensives.
PT evaluated patient and given the patient is asymptomatic with no vertigo no further recommendations. Patient is requesting home PT. Will discuss with case management. Patient does state that she has already seen ENT and many other doctors
regarding her tinnitus. Patient will continue to follow-up with outpatient specialist.
Discharge Plan
Departure
Patient Disposition: Home (Routine Discharge)
Date of Disposition: 03/25/25
Time of Disposition: 10:07
Patient with high blood pressure during this ER visit?: Yes
Discharge Problem:
Hypertension
Instructions: High Blood Pressure (DC)
Prescriptions:
No Action
cholecalciferol (vitamin D3) 1,000 UNITS tablet
1,000 units PO BID
olopatadine [Pataday Once Daily Relief] 2.5 ML drops
1 drp BOTH EYES DAILYPRN PRN (Reason: flare ups)
diphenoxylate-atropine 2.5-0.025 mg Tablet
1 tab PO QID
zinc sulfate 50 mg zinc (220 mg) Tablet
50 mg PO DAILY
ascorbic acid (vitamin C) [Vitamin C] 250 mg Tablet,Chewable
250 mg PO DAILY
vitamin B complex Tablet
1 tab PO DAILY
coenzyme Q10 [CoQ-10] 100 mg Capsule
100 mg PO BID
calcium carbonate-vitamin D3 [Calcium 500 + D] 500 mg-10 mcg (400 unit) Tablet,Chewable
1 tab PO DAILY
omega-3 fatty acids-fish oil 684-1,200 mg Capsule,Delayed Release(Dr/Ec)
1 cap PO DAILY
magnesium oxide 400 mg magnesium Tablet
400 mg PO DAILY
elderberry fruit 350 mg Capsule
350 mg PO DAILY
oxycodone-acetaminophen [Percocet] 5-325 mg tablet
1 tab PO Q4HPRN PRN (Reason: severe pain)
aspirin 81 mg Tablet,Delayed Release (Dr/Ec)
81 mg PO DAILY Qty: 0 0RF
Referrals:
Yrn Jackson MD [Family Provider, Internal Medicine]
Activity Restrictions/Additional Instructions:
You were seen in the Emergency Department today for high blood pressure. Please make sure you follow-up with your cardiology regarding your blood pressure and keep a blood pressure log as discussed.
We would like for you to follow up with your primary care physician for further evaluation. If you experience fever, worsening of your symptoms, or develop any other new or concerning symptoms, please return to the Emergency Department immediately.
Please see the attached sheet for additional information.
Interventions
Interventions:
*Risk Screen - Suicide Last Done: 03/25/25 07:24
*General Assessment Last Done: 03/25/25 07:24
*Neglect/Abuse Screening Last Done: 03/25/25 07:24
*ED- Fall Risk Assessment Last Done: 03/25/25 07:49
*ED COVID-19 Vaccine History Last Done: 03/25/25 07:49
*ED Influenza Vaccine History Last Done: 03/25/25 07:49
*Nursing Disposition Last Done: 03/25/25 10:19
ED- Cardiac Assessment Last Done: 03/25/25 07:50
ED- Neurological Assessment Last Done: 03/25/25 07:50
ED- Pulmonary Assessment Last Done: 03/25/25 07:50
Discharge Date and Time
Discharge Date/Time: 03/25/25 10:20
Print Language: CZECH
--- NOTE | 2025-03-25 10:09 | CM ---
Chart reviewed. Consult received
Pt lives in 2 story home [address] alone
Independent with ADLs
Ambulating with RW
DME stairlift RW cane
Has a clothing presser once a week
PCP DR Yrn Jackson
Pharmacy . Shun
hx of [facility]
Patient is agreeable to resume HC with [facility]
Friend Karin can drive her home
[facility] liasion Eboni was made aware to resume care
Care team made aware
--- NOTE | 2025-03-25 10:18 | EDRN ---
Reviewed discharge instructions with patient. Verbalized understanding. [facility]
--- NOTE | 2025-03-25 10:48 | VNURNOTE ---
Chart reviewed. Patient had [facility] in November. Not currently on service. Referral placed in [facility] for [facility]. Pt left ER prior to liaison meeting her.
== END 2025-03-25 10:20 | disposition home or self-care (01) ==
LOC: EMR 07:23
PROVIDERS: EMERGENCY PHYSICIAN Student in an Organized Health Care Education/Training Program; FAMILY PHYSICIAN Internal Medicine
DX: I10 Essential (primary) hypertension (principal); G35.D Multiple sclerosis, unspecified; E11.9 Type 2 diabetes mellitus without complications; H40.9 Unspecified glaucoma; J44.9 Chronic obstructive pulmonary disease, unspecified; Z90.49 Acquired absence of other specified parts of digestive tract
CPT/HCPCS: 99282